=== PATIENT | female | born 1940 | race Caucasian/White ===

== ENCOUNTER 2021-10-16 16:37 | Inpatient (IN) | payer MEDICARE ==
[~2021-10-16] VITALS: Ht 170.2 cm; Wt 120.7 kg
[2021-10-16] MEDS ORDERED: FUROSEMIDE INJ 10 MG/ML 4 ML VIAL IV ONE (17:45)
[2021-10-16 17:59] LABS: BASOPHILS # (AUTO) 0.1 (0.0-0.1); BASOPHILS % 0.4 % (0.0-1.0); EOSINOPHILS # (AUTO) 0.1 (0.0-0.4); EOSINOPHILS % 0.7 % (0.0-6.0); HEMATOCRIT 51.9 % (34.2-44.1); HEMOGLOBIN 16.2 g/dL (12.0-16.0); LYMPHOCYTES # (AUTO) 1.5 (1.0-3.2); LYMPHOCYTES % 11.3 % (18.0-39.1); MEAN CORPUSCULAR HEMOGLOBIN 28.8 pg (28-32); MEAN CORPUSCULAR HGB CONC 31.2 g/dL (31-35); MEAN CORPUSCULAR VOLUME 92.3 fL (81-99); MONOCYTES % 7.1 % (4.4-11.3); NEUTROPHILS # (AUTO) 10.9 (2.1-6.9); NEUTROPHILS % 79.7 % (38.7-80.0); PLATELET COUNT 144 x10e3/uL (140-360); RED BLOOD COUNT 5.62 x10e6/uL (3.6-5.1); RED CELL DISTRIBUTION WIDTH 14.9 % (11.7-14.4)
[2021-10-16 18:30] LABS: CALCIUM 8.8 mg/dL (8.4-10.2); POTASSIUM 4.7 mmol/L (3.5-5.1)
[2021-10-16] MEDS ORDERED: DILTIAZEM HCL 5 MG/ML 5 ML VIAL IV ONE ×3 (18:30→20:00)
[2021-10-16 18:44] LABS: ALBUMIN 3.1 g/dL (3.5-5.0); ANION GAP 18.5 mmol/L (8-16); CREATININE, SERUM 1.85 mg/dL (0.57-1.11)
[2021-10-16 19:26] LABS: CLARITY,URINE CLEAR (CLEAR); COLOR,URINE STRAW (YELLOW); KETONES,URINE NEGATIVE (NEGATIVE); LEUKOCYTE ESTERASE ,URINE NEGATIVE (NEGATIVE); NITRITE,URINE NEGATIVE (NEGATIVE); PROTEIN,URINE DIPSTICK NEGATIVE (NEGATIVE); URINE UROBILINOGEN 0.2 mg/dL (0.2 - 1)
[2021-10-16 19:30] LABS: AMORPHOUS SEDIMENT,URINE MODERATE (FEW); BACTERIA,URINE MODERATE /HPF; EPITHELIAL CELLS,URINE MODERATE /LPF
[2021-10-16] MEDS ORDERED: HEPARIN SOD (PORCINE) 5,000 UNIT/ML VIAL IV ONE (23:00)
[2021-10-16] MEDS ORDERED: ONDANSETRON HCL 4 MG ORAL DISINTEGRATING TAB PO PRN (23:00)
[2021-10-16] MEDS ORDERED: ACETAMINOPHEN 325 MG TAB PO PRN (23:00)
[2021-10-16] MEDS ORDERED: MAGNESIUM HYDROXIDE 30 ML UDC PO PRN (23:00)
[2021-10-16] MEDS ORDERED: DILTIAZEM HCL IV 5MG/ML 25 ML VIAL ONE (23:08)
[2021-10-16] MEDS ORDERED: SODIUM CHLORIDE 0.9% 100 ML ONE (23:17)
[2021-10-16] MEDS: DILTIAZEM HCL 125 ML IV SCH (23:19)
[2021-10-17] VITALS (24 sets, daily range): BP systolic 82–122; BP diastolic 34–88
[2021-10-17] MEDS ORDERED: LEVALBUTEROL HCL SOLN NEBU 0.63 MG/3 ML NEB INH PRN
[2021-10-17] MEDS ORDERED: HYDRALAZINE HCL 20 MG/ML VIAL IV PRN
[2021-10-17] MEDS ORDERED: ONDANSETRON HCL INJ 2MG/ML 2ML 2 MG/ML VIAL IV PRN
[2021-10-17] MEDS ORDERED: DOCUSATE SODIUM 100 MG CAP PO PRN
[2021-10-17] MEDS ORDERED: HEPARIN 25,000 UNIT DRIP IV ONE (00:48)
[2021-10-17 00:57] LABS: INR 1.04; PROTHROMBIN TIME 14.4 seconds (11.9-14.5)
[2021-10-17 00:58] LABS: PARTIAL THROMBOPLASTIN TIME 29.5 seconds (23.8-35.5)
[2021-10-17] MEDS ORDERED: LEVALBUTEROL HCL SOLN NEBU 0.63 MG/3 ML NEB INH SCH (01:00)
[2021-10-17] MEDS: HEPARIN 25,000 UNIT 1,000 UNIT in DEXTROSE 5% 250ML 250 ML IV SCH (01:43)
[2021-10-17] MEDS ORDERED: AMIODARONE 900MG 500 ML IV STA (01:55)
[2021-10-17] MEDS ORDERED: AMIODARONE HCL 150MG 100 ML IV ONE (01:55)
[2021-10-17] MEDS ORDERED: AMIODARONE HCL 360MG 200 ML IV SCH ×2 (02:00→06:00)
[2021-10-17] MEDS ORDERED: AMIODARONE HCL 100 ML IV ONE (02:16)
[2021-10-17] MEDS ORDERED: AMIODARONE 900MG 500 ML IV ONE (02:16)
[2021-10-17 04:59] LABS: BASOPHILS # (AUTO) 0.1 (0.0-0.1); BASOPHILS % 0.5 % (0.0-1.0); EOSINOPHILS # (AUTO) 0.4 (0.0-0.4); EOSINOPHILS % 2.7 % (0.0-6.0); HEMATOCRIT 47.5 % (34.2-44.1); HEMOGLOBIN 14.7 g/dL (12.0-16.0); LYMPHOCYTES # (AUTO) 1.9 (1.0-3.2); LYMPHOCYTES % 12.4 % (18.0-39.1); MEAN CORPUSCULAR HEMOGLOBIN 28.7 pg (28-32); MEAN CORPUSCULAR HGB CONC 30.9 g/dL (31-35); MEAN CORPUSCULAR VOLUME 92.8 fL (81-99); MONOCYTES # (AUTO) 1.7 (0.2-0.8); MONOCYTES % 11.6 % (4.4-11.3); NEUTROPHILS # (AUTO) 10.7 (2.1-6.9); NEUTROPHILS % 71.9 % (38.7-80.0); PLATELET COUNT 128 x10e3/uL (140-360); RED BLOOD COUNT 5.12 x10e6/uL (3.6-5.1); RED CELL DISTRIBUTION WIDTH 14.6 % (11.7-14.4)
[2021-10-17 05:31] LABS: CALCIUM 8.8 mg/dL (8.4-10.2); CREATININE, SERUM 1.78 mg/dL (0.57-1.11); MAGNESIUM 2.6 MG/DL (1.3-2.1)
[2021-10-17 05:54] LABS: CREATINE KINASE MB 3.8 ng/mL (0-5.0); FREE THYROXINE INDEX 2.2809 (1.4-3.8); THYROID STIMULATING HORMONE 1.282 uIU/mL (0.350-4.940)
[2021-10-17 06:02] LABS: CHOL/HDL RATIO 4.5 (3.0-3.6)
[2021-10-17] MEDS: POTASSIUM CHLORIDE 20 MEQ TAB CR PO SCH ×2 (09:05→17:42)
[2021-10-17] MEDS: FUROSEMIDE INJ 10 MG/ML 4 ML VIAL IV SCH ×2 (09:06→21:15)
[2021-10-17] MEDS ORDERED: DIGOXIN INJ 0.25 MG/ML 2 ML AMP IV ONE ×2 (12:00→20:00)
[2021-10-17 12:06] LABS: CREATINE KINASE MB 4.1 ng/mL (0-5.0)
[2021-10-17 12:36] LABS: INR 1.12; PROTHROMBIN TIME 15.3 seconds (11.9-14.5)
[2021-10-17 12:38] LABS: PARTIAL THROMBOPLASTIN TIME 98.9 seconds (23.8-35.5)
[2021-10-17] MEDS ORDERED: CEFTRIAXONE 1 GM VIAL IV ONE (13:30)
[2021-10-17] MEDS ORDERED: CEFTRIAXONE 1 GM in SODIUM CHLORIDE 0.9% 50ML 50 ML IV ONE (14:00)
[2021-10-17] MEDS ORDERED: SODIUM CHLORIDE 0.9% 250ML 250 ML ONE (16:49)
[2021-10-17] MEDS: ATORVASTATIN 20 MG TAB PO SCH (21:15)
[2021-10-17] MEDS: DILTIAZEM HCL 125 ML IV SCH (21:45)
[2021-10-17] MEDS: AMIODARONE HCL 200 MG TAB PO SCH (23:30)
[2021-10-18] VITALS (25 sets, daily range): BP systolic 97–130; BP diastolic 43–105
[2021-10-18] MEDS: HEPARIN 25,000 UNIT 1,000 UNIT in DEXTROSE 5% 250ML 250 ML IV SCH ×2 (01:00→08:11)
[2021-10-18 06:14] LABS: BASOPHILS % 0.4 % (0.0-1.0); EOSINOPHILS # (AUTO) 0.4 (0.0-0.4); EOSINOPHILS % 3.3 % (0.0-6.0); HEMATOCRIT 43.2 % (34.2-44.1); HEMOGLOBIN 14.1 g/dL (12.0-16.0); LYMPHOCYTES % 9.7 % (18.0-39.1); MEAN CORPUSCULAR HGB CONC 32.6 g/dL (31-35); MEAN CORPUSCULAR VOLUME 88.7 fL (81-99); MONOCYTES # (AUTO) 0.8 (0.2-0.8); MONOCYTES % 7.3 % (4.4-11.3); NEUTROPHILS # (AUTO) 8.4 (2.1-6.9); NEUTROPHILS % 78.7 % (38.7-80.0); PLATELET COUNT 135 x10e3/uL (140-360); RED BLOOD COUNT 4.87 x10e6/uL (3.6-5.1); RED CELL DISTRIBUTION WIDTH 14.4 % (11.7-14.4)
[2021-10-18 06:33] LABS: ANION GAP 13.7 mmol/L (8-16); CALCIUM 7.9 mg/dL (8.4-10.2); CREATININE, SERUM 1.35 mg/dL (0.57-1.11); POTASSIUM 3.7 mmol/L (3.5-5.1)
[2021-10-18] MEDS: SALMETEROL/FLUTICASONE 250/50 INH SCH (09:00)
[2021-10-18] MEDS: CEFTRIAXONE 1 GM in SODIUM CHLORIDE 0.9% 50ML 50 ML IV SCH (10:04)
[2021-10-18] MEDS: FUROSEMIDE INJ 10 MG/ML 4 ML VIAL IV SCH ×2 (10:04→21:18)
[2021-10-18] MEDS: AMIODARONE HCL 200 MG TAB PO SCH ×2 (10:05→17:36)
[2021-10-18] MEDS: DIGOXIN 0.125 MG TAB PO SCH (10:30)
[2021-10-18] MEDS: POTASSIUM CHLORIDE 20 MEQ TAB CR PO SCH ×2 (10:30→17:56)
[2021-10-18] MEDS ORDERED: APIXAB 2.5 MG TABLET PO SCH (17:00)
[2021-10-18] MEDS: APIXAB 2.5 MG TABLET PO SCH (17:35)
[2021-10-18] MEDS: ATORVASTATIN 20 MG TAB PO SCH (21:19)
[2021-10-18] MEDS: DILTIAZEM HCL 125 ML IV SCH (21:45)
[2021-10-19] VITALS (25 sets, daily range): BP systolic 82–139; BP diastolic 48–96
[2021-10-19 06:00] LABS: BASOPHILS % 0.4 % (0.0-1.0); EOSINOPHILS # (AUTO) 0.2 (0.0-0.4); EOSINOPHILS % 2.2 % (0.0-6.0); HEMATOCRIT 43.3 % (34.2-44.1); HEMOGLOBIN 13.9 g/dL (12.0-16.0); LYMPHOCYTES # (AUTO) 1.1 (1.0-3.2); LYMPHOCYTES % 12.4 % (18.0-39.1); MEAN CORPUSCULAR HEMOGLOBIN 28.5 pg (28-32); MEAN CORPUSCULAR HGB CONC 32.1 g/dL (31-35); MEAN CORPUSCULAR VOLUME 88.7 fL (81-99); MONOCYTES # (AUTO) 0.9 (0.2-0.8); MONOCYTES % 9.8 % (4.4-11.3); NEUTROPHILS # (AUTO) 6.7 (2.1-6.9); NEUTROPHILS % 74.8 % (38.7-80.0); PLATELET COUNT 139 x10e3/uL (140-360); RED BLOOD COUNT 4.88 x10e6/uL (3.6-5.1); RED CELL DISTRIBUTION WIDTH 14.5 % (11.7-14.4)
[2021-10-19 06:16] LABS: ANION GAP 13.9 mmol/L (8-16); CALCIUM 8.2 mg/dL (8.4-10.2); CREATININE, SERUM 1.24 mg/dL (0.57-1.11); POTASSIUM 3.9 mmol/L (3.5-5.1)
[2021-10-19] MEDS: SALMETEROL/FLUTICASONE 250/50 INH SCH (07:26)
[2021-10-19] MEDS ORDERED: DIGOXIN INJ 0.25 MG/ML 2 ML AMP IV ONE (07:30)
[2021-10-19] MEDS: FUROSEMIDE INJ 10 MG/ML 4 ML VIAL IV SCH ×2 (08:02→21:29)
[2021-10-19] MEDS: POTASSIUM CHLORIDE 20 MEQ TAB CR PO SCH ×2 (08:02→17:04)
[2021-10-19] MEDS: CEFTRIAXONE 1 GM in SODIUM CHLORIDE 0.9% 50ML 50 ML IV SCH (08:02)
[2021-10-19] MEDS: APIXAB 2.5 MG TABLET PO SCH ×2 (08:02→17:04)
[2021-10-19] MEDS: AMIODARONE HCL 200 MG TAB PO SCH ×2 (08:02→17:04)
[2021-10-19] MEDS: DIGOXIN 0.125 MG TAB PO SCH (08:02)
[2021-10-19] MEDS: MAGNESIUM/ALUMINUM/SIMETHICONE 30 ML UDC PO PRN (12:53)
[2021-10-19] MEDS: DILTIAZEM HCL 125 ML IV SCH (21:29)
[2021-10-19] MEDS: ATORVASTATIN 20 MG TAB PO SCH (21:29)
[2021-10-20] VITALS (24 sets, daily range): BP systolic 92–124; BP diastolic 41–74
[2021-10-20 05:53] LABS: BASOPHILS % 0.4 % (0.0-1.0); EOSINOPHILS # (AUTO) 0.2 (0.0-0.4); HEMOGLOBIN 13.7 g/dL (12.0-16.0); LYMPHOCYTES # (AUTO) 0.8 (1.0-3.2); LYMPHOCYTES % 9.7 % (18.0-39.1); MEAN CORPUSCULAR HEMOGLOBIN 28.7 pg (28-32); MEAN CORPUSCULAR HGB CONC 31.9 g/dL (31-35); MEAN CORPUSCULAR VOLUME 90.1 fL (81-99); MONOCYTES # (AUTO) 0.8 (0.2-0.8); MONOCYTES % 9.8 % (4.4-11.3); NEUTROPHILS # (AUTO) 6.2 (2.1-6.9); NEUTROPHILS % 76.6 % (38.7-80.0); PLATELET COUNT 118 x10e3/uL (140-360); RED BLOOD COUNT 4.77 x10e6/uL (3.6-5.1); RED CELL DISTRIBUTION WIDTH 14.6 % (11.7-14.4)
[2021-10-20 06:00] LABS: ALBUMIN 2.5 g/dL (3.5-5.0); ALBUMIN/GLOBULIN RATIO 0.9 (0.8-2.0); ANION GAP 10.2 mmol/L (8-16); CALCIUM 8.3 mg/dL (8.4-10.2); CREATININE, SERUM 1.14 mg/dL (0.57-1.11); POTASSIUM 4.2 mmol/L (3.5-5.1)
[2021-10-20] MEDS: CEFTRIAXONE 1 GM in SODIUM CHLORIDE 0.9% 50ML 50 ML IV SCH (08:35)
[2021-10-20] MEDS: POTASSIUM CHLORIDE 20 MEQ TAB CR PO SCH ×2 (08:35→17:11)
[2021-10-20] MEDS: DIGOXIN 0.125 MG TAB PO SCH (08:35)
[2021-10-20] MEDS: FUROSEMIDE INJ 10 MG/ML 4 ML VIAL IV SCH ×2 (08:35→20:47)
[2021-10-20] MEDS: APIXAB 2.5 MG TABLET PO SCH ×2 (08:35→17:11)
[2021-10-20] MEDS: AMIODARONE HCL 200 MG TAB PO SCH ×2 (08:35→17:11)
[2021-10-20] MEDS: SALMETEROL/FLUTICASONE 250/50 INH SCH (09:24)
[2021-10-20] MEDS: MAGNESIUM/ALUMINUM/SIMETHICONE 30 ML UDC PO PRN (14:00)
[2021-10-20] MEDS: ATORVASTATIN 20 MG TAB PO SCH (20:47)
[2021-10-20] MEDS: DILTIAZEM HCL 125 ML IV SCH (20:48)
[2021-10-21] VITALS (21 sets, daily range): BP systolic 90–125; BP diastolic 45–75
[2021-10-21 06:10] LABS: BASOPHILS % 0.5 % (0.0-1.0); EOSINOPHILS # (AUTO) 0.3 (0.0-0.4); EOSINOPHILS % 3.8 % (0.0-6.0); HEMATOCRIT 42.8 % (34.2-44.1); HEMOGLOBIN 13.5 g/dL (12.0-16.0); LYMPHOCYTES # (AUTO) 0.9 (1.0-3.2); LYMPHOCYTES % 10.8 % (18.0-39.1); MEAN CORPUSCULAR HEMOGLOBIN 28.9 pg (28-32); MEAN CORPUSCULAR HGB CONC 31.5 g/dL (31-35); MEAN CORPUSCULAR VOLUME 91.6 fL (81-99); MONOCYTES # (AUTO) 0.8 (0.2-0.8); NEUTROPHILS # (AUTO) 6.1 (2.1-6.9); NEUTROPHILS % 74.5 % (38.7-80.0); PLATELET COUNT 116 x10e3/uL (140-360); RED BLOOD COUNT 4.67 x10e6/uL (3.6-5.1); RED CELL DISTRIBUTION WIDTH 14.6 % (11.7-14.4)
[2021-10-21 06:23] LABS: ANION GAP 11.2 mmol/L (8-16); CALCIUM 8.2 mg/dL (8.4-10.2); CREATININE, SERUM 1.14 mg/dL (0.57-1.11); POTASSIUM 4.2 mmol/L (3.5-5.1)
[2021-10-21] MEDS ORDERED: SODIUM CHLORIDE 0.9% 50ML 50 ML ONE (08:08)
[2021-10-21] MEDS: FUROSEMIDE INJ 10 MG/ML 4 ML VIAL IV SCH (08:20)
[2021-10-21] MEDS: CEFTRIAXONE 1 GM in SODIUM CHLORIDE 0.9% 50ML 50 ML IV SCH (08:20)
[2021-10-21] MEDS: DIGOXIN 0.125 MG TAB PO SCH (08:21)
[2021-10-21] MEDS: APIXAB 2.5 MG TABLET PO SCH ×2 (08:21→17:22)
[2021-10-21] MEDS: AMIODARONE HCL 200 MG TAB PO SCH ×2 (08:21→17:22)
[2021-10-21] MEDS: POTASSIUM CHLORIDE 20 MEQ TAB CR PO SCH ×2 (08:21→17:22)
[2021-10-21] MEDS: SALMETEROL/FLUTICASONE 250/50 INH SCH ×4 (08:52→17:00)
[2021-10-21] MEDS: MAGNESIUM/ALUMINUM/SIMETHICONE 30 ML UDC PO PRN (12:51)
[2021-10-21] MEDS ORDERED: BISACODYL 10 MG SUPP PR NR (16:00)
[2021-10-21] MEDS: DOCUSATE SODIUM 100 MG CAP PO SCH (17:01)
[2021-10-21] MEDS: SIMETHICONE 80 MG CHEW PO SCH ×2 (17:01→21:00)
[2021-10-21] MEDS ORDERED: MINERAL OIL 132 ML BTL PR ONE (20:15)
[2021-10-21] MEDS: ATORVASTATIN 20 MG TAB PO SCH (21:00)
[2021-10-22] VITALS (8 sets, daily range): BP systolic 95–125; BP diastolic 53–67
[2021-10-22 06:37] LABS: BASOPHILS % 0.3 % (0.0-1.0); EOSINOPHILS # (AUTO) 0.1 (0.0-0.4); EOSINOPHILS % 1.5 % (0.0-6.0); HEMATOCRIT 42.9 % (34.2-44.1); HEMOGLOBIN 13.4 g/dL (12.0-16.0); LYMPHOCYTES # (AUTO) 0.9 (1.0-3.2); LYMPHOCYTES % 10.6 % (18.0-39.1); MEAN CORPUSCULAR HEMOGLOBIN 28.8 pg (28-32); MEAN CORPUSCULAR HGB CONC 31.2 g/dL (31-35); MEAN CORPUSCULAR VOLUME 92.1 fL (81-99); MONOCYTES # (AUTO) 0.9 (0.2-0.8); MONOCYTES % 9.9 % (4.4-11.3); NEUTROPHILS # (AUTO) 6.7 (2.1-6.9); NEUTROPHILS % 77.4 % (38.7-80.0); PLATELET COUNT 118 x10e3/uL (140-360); RED BLOOD COUNT 4.66 x10e6/uL (3.6-5.1); RED CELL DISTRIBUTION WIDTH 14.7 % (11.7-14.4)
[2021-10-22 06:46] LABS: ANION GAP 11.7 mmol/L (8-16); CALCIUM 8.5 mg/dL (8.4-10.2); CREATININE, SERUM 1.11 mg/dL (0.57-1.11); POTASSIUM 4.7 mmol/L (3.5-5.1)
[2021-10-22] MEDS ORDERED: SODIUM CHLORIDE 0.9% 250ML 250 ML ONE (07:37)
[2021-10-22] MEDS: POTASSIUM CHLORIDE 20 MEQ TAB CR PO SCH ×2 (09:06→15:45)
[2021-10-22] MEDS: CEFTRIAXONE 1 GM in SODIUM CHLORIDE 0.9% 50ML 50 ML IV SCH (09:06)
[2021-10-22] MEDS: AMIODARONE HCL 200 MG TAB PO SCH ×2 (09:06→15:45)
[2021-10-22] MEDS: FUROSEMIDE INJ 10 MG/ML 4 ML VIAL IV SCH (09:06)
[2021-10-22] MEDS: APIXAB 2.5 MG TABLET PO SCH ×2 (09:06→15:45)
[2021-10-22] MEDS: DOCUSATE SODIUM 100 MG CAP PO SCH ×2 (09:06→15:45)
[2021-10-22] MEDS: DIGOXIN 0.125 MG TAB PO SCH (09:07)
[2021-10-22] MEDS: SIMETHICONE 80 MG CHEW PO SCH ×3 (09:07→20:32)
[2021-10-22] MEDS ORDERED: TENORMIN50 MG PO (09:11)
[2021-10-22] MEDS ORDERED: LIPITOR20 MG PO (09:11)
[2021-10-22] MEDS ORDERED: FUROSEMIDE80 MG PO (09:11)
[2021-10-22] MEDS ORDERED: K-DUR10 MEQ PO (09:11)
[2021-10-22] MEDS ORDERED: ADVAIR 250-501 EACH INH (09:12)
[2021-10-22] MEDS ORDERED: ONDANSETRON HCL 4 MG ORAL DISINTEGRATING TAB PO PRN (10:30)
[2021-10-22] MEDS: SALMETEROL/FLUTICASONE 250/50 INH SCH ×2 (11:30→19:35)
[2021-10-22] MEDS: ATORVASTATIN 20 MG TAB PO SCH (20:32)
[2021-10-23 00:05] VITALS: BP 110/64
[2021-10-23 04:04] VITALS: BP 122/65
[2021-10-23 05:37] LABS: BASOPHILS # (AUTO) 0.1 (0.0-0.1); BASOPHILS % 0.8 % (0.0-1.0); EOSINOPHILS # (AUTO) 0.2 (0.0-0.4); EOSINOPHILS % 3.5 % (0.0-6.0); HEMATOCRIT 41.2 % (34.2-44.1); LYMPHOCYTES # (AUTO) 1.1 (1.0-3.2); MEAN CORPUSCULAR HEMOGLOBIN 28.4 pg (28-32); MEAN CORPUSCULAR HGB CONC 31.6 g/dL (31-35); MONOCYTES # (AUTO) 0.7 (0.2-0.8); MONOCYTES % 10.6 % (4.4-11.3); NEUTROPHILS # (AUTO) 4.4 (2.1-6.9); NEUTROPHILS % 67.8 % (38.7-80.0); PLATELET COUNT 114 x10e3/uL (140-360); RED BLOOD COUNT 4.58 x10e6/uL (3.6-5.1); RED CELL DISTRIBUTION WIDTH 14.6 % (11.7-14.4)
[2021-10-23 05:59] LABS: ANION GAP 12.4 mmol/L (8-16); CALCIUM 8.5 mg/dL (8.4-10.2); CREATININE, SERUM 1.04 mg/dL (0.57-1.11); POTASSIUM 4.4 mmol/L (3.5-5.1)
[2021-10-23 07:41] VITALS: BP 115/69
[2021-10-23 07:43] VITALS: BP 115/69
[2021-10-23] MEDS: VALSARTAN/SACUBITRIL 24MG/26MG 1 EA TAB PO SCH ×2 (08:43→16:12)
[2021-10-23] MEDS: SIMETHICONE 80 MG CHEW PO SCH ×2 (08:43→16:12)
[2021-10-23] MEDS: DIGOXIN 0.125 MG TAB PO SCH (08:43)
[2021-10-23] MEDS: POTASSIUM CHLORIDE 20 MEQ TAB CR PO SCH ×2 (08:43→16:12)
[2021-10-23] MEDS: APIXAB 2.5 MG TABLET PO SCH ×2 (08:43→16:12)
[2021-10-23] MEDS: DOCUSATE SODIUM 100 MG CAP PO SCH ×2 (08:43→16:12)
[2021-10-23] MEDS: FUROSEMIDE INJ 10 MG/ML 4 ML VIAL IV SCH (08:43)
[2021-10-23] MEDS: AMIODARONE HCL 200 MG TAB PO SCH ×2 (08:43→16:12)
[2021-10-23] MEDS: SALMETEROL/FLUTICASONE 250/50 INH SCH (11:00)
[2021-10-23 11:12] VITALS: BP 115/67
[2021-10-23 15:50] VITALS: BP 102/52
[2021-10-24] MEDS ORDERED: FUROSEMIDE 40 MG TAB PO SCH (09:00)
[2021-10-24] MEDS ORDERED: DIGOXIN 0.125 MG TAB PO SCH (09:00)
[2021-10-24] MEDS ORDERED: AMIODARONE HCL 200 MG TAB PO SCH (09:00)
== END 2021-10-23 17:55 | DRG 291 ==
LOC: ER 16:56 → ERHOLD 19:34 → ICU 23:58 → MED/SURG 10-21 22:25
PROVIDERS: ADMIT Specialist; ATTEND Specialist
PROC: 02HV33Z Insertion of Infusion Device into Superior Vena Cava, Percutaneous Approach (ICD-10-PCS; principal; 2021-10-17)
DX: I13.0 Hypertensive heart and chronic kidney disease with heart failure and stage 1 through stage 4 chronic kidney disease, or unspecified chronic kidney disease (principal); I50.23 Acute on chronic systolic (congestive) heart failure; J18.9 Pneumonia, unspecified organism; J96.21 Acute and chronic respiratory failure with hypoxia; J44.0 Chronic obstructive pulmonary disease with (acute) lower respiratory infection; J44.1 Chronic obstructive pulmonary disease with (acute) exacerbation; N17.9 Acute kidney failure, unspecified; Z68.42 Body mass index [BMI] 45.0-49.9, adult; I48.91 Unspecified atrial fibrillation; I42.9 Cardiomyopathy, unspecified; E66.01 Morbid (severe) obesity due to excess calories; Z79.01 Long term (current) use of anticoagulants; Z99.81 Dependence on supplemental oxygen; Z87.891 Personal history of nicotine dependence; Z20.822 Contact with and (suspected) exposure to COVID-19; N18.30 Chronic kidney disease, stage 3 unspecified; E66.9 Obesity, unspecified; E88.09 Other disorders of plasma-protein metabolism, not elsewhere classified; I25.10 Atherosclerotic heart disease of native coronary artery without angina pectoris; I70.201 Unspecified atherosclerosis of native arteries of extremities, right leg; I27.20 Pulmonary hypertension, unspecified
CPT/HCPCS: 36415; 51700; 71045; 80048; 80053; 80061; 81001; 82550; 82553; 83605; 83735; 83880; 84436; 84443; 84479; 84484; 85025; 85610; 85730; 87040; 93005; 93306; 93925; 93971; 94664; 94799; 97139; 99251; 99285; J0456; J0696; J1160; J1644; J1940; J7050; Q0162; U0002